=== PATIENT | female | born 1955 | race Caucasian/White ===

== ENCOUNTER 2025-05-08 13:43 | Emergency (ER) | payer MEDICARE, OTHER ==
[~2025-05-08] VITALS: Ht 180.3 cm; Wt 144.2 kg
[2025-05-08] MEDS: IV NORMAL SALINE 1000 ML BAG IV ONE (14:23)
[2025-05-08 14:24] LABS: PLATELET COUNT (AUTO) 243 K/uL (179-408); RED BLOOD CELL COUNT(AUTO) 4.12 MIL/uL (3.63-4.92); RED CELL DISTRIBUTION WIDTH 14.9 % (12.3-17.7); WHITE BLOOD COUNT (AUTO) 8.2 K/uL (3.8-11.8)
[2025-05-08 14:30] LABS: CREATININE 0.7 mg/dL (0.6-1.3); SODIUM SERUM 133.0 mmol/L (136-145); UREA NITROGEN, BLOOD 15.0 mg/dL (7-18)
[2025-05-08 14:36] LABS: ASPARTATE AMINOTRANSFERASE 10.0 U/L (15-37); TOTAL PROTEIN, SERUM 6.5 g/dL (6.4-8.2)
[2025-05-08] MEDS ORDERED: DEXTROSE 50% 50 ML DISP.SYRIN ONE (14:41)
[2025-05-08] MEDS: DEXTROSE 50% 50 ML DISP.SYRIN IV ONE (14:42)
[2025-05-08] MEDS ORDERED: MAGNESIUM SULFATE/D5W 100 ML IV SCH (15:00)
[2025-05-08] MEDS ORDERED: IV NORMAL SALINE 250 ML IV ONE (15:08)
[2025-05-08] MEDS ORDERED: IOHEXOL 300MG/ML 100 ML INFUS..BTL ONE (15:08)
[2025-05-08] MEDS ORDERED: SWABABLE VALVE TRANSFER SET EA MC ONE (15:08)
[2025-05-08] MEDS: MAGNESIUM SULFATE/D5W 100 ML IV SCH (15:15)
[2025-05-08] MEDS ORDERED: MAGNESIUM SULFATE/D5W 200 ML ONE (15:50)
[2025-05-08] MEDS ORDERED: METF-494 PO (16:23)
[2025-05-08] MEDS ORDERED: TRAZ-182 PO (16:23)
[2025-05-08] MEDS ORDERED: RISP3TAB61 PO (16:23)
[2025-05-08] MEDS ORDERED: NYST15PO4 TP (16:23)
[2025-05-08] MEDS ORDERED: CHOL200074 PO (16:23)
[2025-05-08] MEDS ORDERED: APIX2.5T PO (16:23)
[2025-05-08] MEDS ORDERED: DIVA-78 PO (16:23)
[2025-05-08] MEDS ORDERED: ARIP30TA3 PO (16:23)
[2025-05-08] MEDS ORDERED: HYDR50TA4 PO (16:23)
[2025-05-08] MEDS ORDERED: DIPH-1062 PO (16:23)
[2025-05-08] MEDS ORDERED: PANT20TA2 PO (16:23)
[2025-05-08] MEDS ORDERED: ASCO500T85 PO (16:23)
[2025-05-08] MEDS ORDERED: ATOR40TA PO (16:23)
[2025-05-08] MEDS ORDERED: ASPI81TA31 PO (16:23)
[2025-05-08] MEDS ORDERED: LOSA50TA39 PO (16:23)
[2025-05-08] MEDS ORDERED: MAGN400C PO (16:23)
[2025-05-08] MEDS ORDERED: FOLI1TAB94 PO (16:23)
[2025-05-08] MEDS ORDERED: AMLO10TA59 PO (16:23)
[2025-05-08] MEDS ORDERED: BENZ0.5T43 PO (16:23)
[2025-05-08] MEDS ORDERED: DULO20CA PO (16:23)
[2025-05-08] MEDS ORDERED: OXYB5TAB16 PO (16:23)
[2025-05-08] MEDS ORDERED: FLUT16SP BNOSTRILS (16:23)
[2025-05-08] MEDS ORDERED: LACT10SO58 PO (16:23)
[2025-05-08] MEDS ORDERED: SODI100010 PO (16:23)
[2025-05-08] MEDS ORDERED: RISP1TAB97 PO (16:23)
[2025-05-08] MEDS ORDERED: CALC500T13 PO (16:23)
[2025-05-08] MEDS ORDERED: FAMO20TA8 PO (16:23)
[2025-05-08] MEDS ORDERED: POTASSIUM CHLORIDE 20 MEQ TAB.PRT.SR ONE (16:54)
[2025-05-08] MEDS: POTASSIUM CHLORIDE 20 MEQ TAB.PRT.SR PO ONE (16:55)
[2025-05-08 23:59] VITALS: BP 103/65; O2SAT 95
== END 2025-05-08 22:30 | disposition home or self-care (01) ==
LOC: ER 13:43
DX: R19.7 Diarrhea, unspecified (principal); E11.649 Type 2 diabetes mellitus with hypoglycemia without coma; E83.42 Hypomagnesemia; E87.6 Hypokalemia; R94.31 Abnormal electrocardiogram [ECG] [EKG]; R06.00 Dyspnea, unspecified; R10.9 Unspecified abdominal pain; R11.0 Nausea; R93.1 Abnormal findings on diagnostic imaging of heart and coronary circulation; G40.909 Epilepsy, unspecified, not intractable, without status epilepticus; Z88.5 Allergy status to narcotic agent; Z89.511 Acquired absence of right leg below knee; Z90.49 Acquired absence of other specified parts of digestive tract; Z87.39 Personal history of other diseases of the musculoskeletal system and connective tissue; Z91.013 Allergy to seafood
CPT/HCPCS: 99285; 74177; 96365; 96366; 71045; 96375; 80053; 82962; 83690; 83735; 85025; 84484; 36415; J3490; J3475; Q9967; J7040; A4606; A4663